=== PATIENT | male | born 1955 | race Caucasian/White ===

== ENCOUNTER 2022-02-24 07:50 | Day surgery (SDC) | payer MEDICARE, OTHER ==
[~2022-02-24] VITALS: Ht 185.4 cm; Wt 115.4 kg
[~2022-02-24 07:50] MED LIST: ASPIRIN E.C. 8181 MG PO; BLOOD PRESSURE MED; GOUT MED; LORTAB 5/500 501 TAB PO; [UNRECOGNIZED DRUG - REMARK]
[2022-02-24 08:21] VITALS: BP 140/99; PULSE 63; TEMP 97.9
[2022-02-24] MEDS ORDERED: PRINIVIL20 MG PO (08:25)
[2022-02-24] MEDS ORDERED: NEXIUM 40MG40 MG PO (08:26)
[2022-02-24] MEDS ORDERED: LIPITOR 40MG TA40 MG PO (08:26)
[2022-02-24] MEDS ORDERED: CENTRUM SILVER1 CTB PO (08:27)
[2022-02-24] MEDS ORDERED: OMEGA-3 1000 MG1 CAP PO (08:28)
[2022-02-24] MEDS ORDERED: ASPIRIN 81M81 MG/TA2 PO (08:28)
[2022-02-24] MEDS ORDERED: OS-CAL 500 + D1 TAB PO (08:30)
[2022-02-24] MEDS ORDERED: FLOMAX 0.40.4 MG/CAP PO (08:30)
[2022-02-24 09:50] VITALS: BP 107/73; PULSE 71; TEMP 96.1
--- NOTE | 2022-02-24 10:04 | NUR ---
0950 - PT arrives from procedure and was settled by Sabina LOJA. Verbal report then obtained. 1005 - VSS. PT has finished snack and drink; denies nausea and pain. PT expressed desired to go home. Awaiting DR to speak w/ PT. Call harrington remains within reach.
[2022-02-24 10:05] VITALS: BP 131/71; PULSE 77
[2022-02-24 10:20] VITALS: BP 129/72; PULSE 66
--- NOTE | 2022-02-24 10:27 | NUR ---
1020 - VSS. IV discontinued. Catheter tip intact and pressure bandage applied. NO redness or swelling noted. DC instructions and eduational material revewed w/ PT who verbalized understanding and signed the related paperwork. Questions answered to PT satisfaction. PT refused RN assistance changing, however, call harrington remains within reach. Visitor remains present.
--- NOTE | 2022-02-24 10:39 | NUR ---
1035 - PT dismissed from endo via wheelchair by a tech; who states PT has DC packet and personal belonings. PT was transferred into the care of Shakira, who is driving private car.
== END 2022-02-24 10:35 | disposition home or self-care (01) ==
LOC: SDCO 07:50
DX: Z12.11 Encounter for screening for malignant neoplasm of colon (principal); D12.5 Benign neoplasm of sigmoid colon; D12.0 Benign neoplasm of cecum; K21.9 Gastro-esophageal reflux disease without esophagitis; I10 Essential (primary) hypertension; G47.33 Obstructive sleep apnea (adult) (pediatric); E66.9 Obesity, unspecified; Z79.82 Long term (current) use of aspirin
CPT/HCPCS: J2704; J7030

== ENCOUNTER → 2022-03-03 | Outpatient (CLI) | payer MEDICARE, OTHER ==
[~2022-03-03] MED LIST changes: +ASPIRIN 81M81 MG/TA2 PO; +CENTRUM SILVER1 CTB PO; +FLOMAX 0.40.4 MG/CAP PO; +LIPITOR 40MG TA40 MG PO; +NEXIUM 40MG40 MG PO; +OMEGA-3 1000 MG1 CAP PO; +OS-CAL 500 + D1 TAB PO; +PRINIVIL20 MG PO
== END ==
LOC: COL.RAD 01-27 10:30
DX: Z13.6 Encounter for screening for cardiovascular disorders (principal); Z87.891 Personal history of nicotine dependence